=== PATIENT | male | born 1975 ===

== ENCOUNTER 2018-08-30 02:25 | Inpatient (IN) ==
[2018-08-30] MEDS ORDERED: HYDROmorphone PF Inj 1 MG/ML Ampul ONE (02:37)
[2018-08-30] MEDS ORDERED: Midazolam Inj 5 MG/ML 1 ML Vial ONE (02:38)
[2018-08-30] MEDS ORDERED: Diphtheria/Tetanus/Pertussis Vaccine Inj 0.5 ML Syringe IM ONE (02:46)
[2018-08-30 02:49] LABS: Baso # (Auto) 0.1 th/mm3 (0.0-0.2); Baso % (Auto) 0.5 % (0.0-2.0); Eos # (Auto) 0.4 th/mm3 (0.0-0.4); Eos % (Auto) 3.8 % (0.0-4.0); Hematocrit 42.1 % (39.0-51.0); Hemoglobin 13.6 gm/dL (13.0-17.0); Lymph # (Auto) 3.4 th/mm3 (1.0-4.8); Lymph % (Auto) 33.3 % (9.0-44.0); Mean Corpuscular HGB Conc 32.4 % (32.0-36.0); Mean Corpuscular Hemoglobin 25.6 pg (27.0-34.0); Mean Corpuscular Volume 79.1 fL (80.0-100.0); Mean Platelet Volume 6.6 fL (7.0-11.0); Mono # (Auto) 0.8 th/mm3 (0.0-0.9); Mono % (Auto) 7.9 % (0.0-8.0); Neut # (Auto) 5.6 th/mm3 (1.8-7.7); Neut % (Auto) 54.5 % (16.0-70.0); Platelet Count 256 th/mm3 (150-450); Red Blood Count 5.32 mil/mm3 (4.50-5.90); Red Cell Distribution Width 14.5 % (11.6-17.2); White Blood Count 10.3 th/mm3 (4.0-11.0)
[2018-08-30 02:58] LABS: Activated Partial Thrombo Time 24.3 sec (23.4-31.7); INR 1.1 Ratio; Prothrombin Time 11.2 sec (9.8-11.6)
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
[2018-08-30] MEDS: Gabapentin 300 MG Capsule PO SCH ×2 (12:42→17:46)
--- NOTE | 2018-08-30 14:21 | MR ---
EXAM DATE: 08/30/2018 2:03 PM EST AGE/SEX: 43 years / Male INDICATIONS: . Left shoulder pain and immobility. CLINICAL DATA: This is the patient's subsequent encounter. Patient reports that signs and symptoms h ave been present for 1 day and indicates a pain score of 5/10. MEDICAL/SURGICAL HISTORY: None. None. COMPARISON: No prior exams available for comparison. TECHNIQUE: Multiplanar, multisequence MRI examination was performed without contrast. FINDINGS: Rotator Cuff: A small fluid-filled cleft is identified in the rotator cuff adjacent to and posterior to the bicipital groove. It does not appear to communicate with the joint space. The musculotendinou s junction of the supraspinatus muscle is mildly heterogeneous but otherwise intact. Labrum: Axial images are slightly degraded by motion however no discrete labral tear is identified. Marrow/Cartilage: Focal bone marrow edema is identified in the greater tuberosity adjacent to the sm all cleft within the rotator cuff. Small amount of fluid is identified in the subdeltoid bursa. Other: Significant periarticular T2 hyperintensity characteristic of inflammation is identified in t he axilla surrounding the neurovascular bundle and extending caudally into the proximal humeral regio n. There is no evidence of focal hematoma. The artery and nerve appear intact. Neurologic structures cannot be clearly identified. CONCLUSION: 1. Partial tear of the rotator cuff along the anterior interval with mild underlying bone marrow sabi ma. 2. Significant axillary inflammation surrounding the neurovascular bundle. The artery and vein appea r intact however the nerves cannot be clearly identified. 3. Otherwise intact shoulder joint. Electronically signed by: Pepe Shields MD 08/30/2018 2:20 PM EST
[2018-08-30] MEDS: Sod Chloride 0.9% Inj 1,000 ML IV.CONT SCH (16:06)
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
[2018-08-30] MEDS: Docusate Sodium 100 MG Capsule PO SCH (20:48)
[2018-08-30] MEDS: MethylPREDNISolone Sod Succinate Inj 40 MG/ML Vial IV.PUSH SCH ×2 (20:49→23:10)
[2018-08-31] MEDS: Sod Chloride 0.9% Inj 1,000 ML IV.CONT SCH (03:36)
[2018-08-31] MEDS: MethylPREDNISolone Sod Succinate Inj 40 MG/ML Vial IV.PUSH SCH ×3 (05:18→22:23)
[2018-08-31 06:05] LABS: Baso % (Auto) 0.1 % (0.0-2.0); Eos % (Auto) 0.1 % (0.0-4.0); Hematocrit 42.9 % (39.0-51.0); Lymph # (Auto) 0.7 th/mm3 (1.0-4.8); Lymph % (Auto) 10.8 % (9.0-44.0); Mean Corpuscular HGB Conc 32.7 % (32.0-36.0); Mean Corpuscular Hemoglobin 25.9 pg (27.0-34.0); Mean Corpuscular Volume 79.1 fL (80.0-100.0); Mean Platelet Volume 6.6 fL (7.0-11.0); Mono # (Auto) 0.1 th/mm3 (0.0-0.9); Mono % (Auto) 1.6 % (0.0-8.0); Neut # (Auto) 5.7 th/mm3 (1.8-7.7); Neut % (Auto) 87.4 % (16.0-70.0); Platelet Count 225 th/mm3 (150-450); Red Blood Count 5.42 mil/mm3 (4.50-5.90); Red Cell Distribution Width 14.3 % (11.6-17.2); White Blood Count 6.5 th/mm3 (4.0-11.0)
[2018-08-31 06:32] LABS: Calcium 8.6 mg/dL (8.5-10.1); Carbon Dioxide 29.1 meq/L (21.0-32.0); Potassium 4.5 meq/L (3.5-5.1)
[2018-08-31] MEDS: Docusate Sodium 100 MG Capsule PO SCH ×2 (08:42→22:23)
[2018-08-31] MEDS: Gabapentin 300 MG Capsule PO SCH ×3 (08:42→18:35)
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
[2018-09-01 05:53] LABS: Baso % (Auto) 0.1 % (0.0-2.0); Lymph # (Auto) 1.1 th/mm3 (1.0-4.8); Lymph % (Auto) 9.6 % (9.0-44.0); Mean Corpuscular HGB Conc 33.3 % (32.0-36.0); Mean Corpuscular Hemoglobin 25.8 pg (27.0-34.0); Mean Corpuscular Volume 77.6 fL (80.0-100.0); Mean Platelet Volume 6.6 fL (7.0-11.0); Mono # (Auto) 0.6 th/mm3 (0.0-0.9); Mono % (Auto) 4.8 % (0.0-8.0); Neut # (Auto) 9.9 th/mm3 (1.8-7.7); Neut % (Auto) 85.5 % (16.0-70.0); Platelet Count 247 th/mm3 (150-450); Red Blood Count 5.41 mil/mm3 (4.50-5.90); Red Cell Distribution Width 14.6 % (11.6-17.2); White Blood Count 11.6 th/mm3 (4.0-11.0)
[2018-09-01] MEDS: MethylPREDNISolone Sod Succinate Inj 40 MG/ML Vial IV.PUSH SCH ×4 (05:59→22:28)
[2018-09-01 06:00] LABS: Calcium 8.4 mg/dL (8.5-10.1); Carbon Dioxide 32.1 meq/L (21.0-32.0); Potassium 4.3 meq/L (3.5-5.1)
[2018-09-01] MEDS: Gabapentin 300 MG Capsule PO SCH ×3 (08:43→17:06)
[2018-09-01] MEDS: Docusate Sodium 100 MG Capsule PO SCH ×2 (08:44→20:54)
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
[2018-09-02] MEDS: MethylPREDNISolone Sod Succinate Inj 40 MG/ML Vial IV.PUSH SCH ×2 (05:52→13:02)
[2018-09-02] MEDS: Docusate Sodium 100 MG Capsule PO SCH (08:51)
[2018-09-02] MEDS: Gabapentin 300 MG Capsule PO SCH ×2 (08:51→13:02)
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
== END 2018-09-02 15:52 | disposition home or self-care (01) ==
LOC: NEPE 02:25 → EDBD 06:29 → NEDA 06:29 → N06 14:10
PROVIDERS: ADMIT Surgery; ATTEND Surgery